=== PATIENT | female | born 1940 | race Caucasian/White ===

== ENCOUNTER → 2019-01-30 | Outpatient (CLI) | payer OTHER ==
[~2019-01-30] MED LIST: ATIVAN0.5 MG PO; BENADRYL25 MG PO; CALCIUM MAGNES1 EACH PO; GINGER ROOT550 MG PO; KEFLEX500 M1 PO; POTASSIUM99 M1 PO; PRAVACHOL40 MG PO; PROBIOTIC1 EAC1 PO; TRAZODONE 150150 M1 PO; TRIAMCINOLONE 080 G3 TOP; VITAMIN D3-ALO1 EACH PO; ZANTAC 150MG T150 MG PO
== END ==
LOC: M.ULTRA 15:00
DX: I65.23 Occlusion and stenosis of bilateral carotid arteries (principal)